=== PATIENT | male | born 1975 | race Caucasian/White ===

== ENCOUNTER 2017-08-23 17:58 | Emergency (ER) | payer BC ==
[~2017-08-23] VITALS: Ht 180.3 cm; Wt 122.5 kg
[2017-08-23 18:05] VITALS: BP 135/85
--- NOTE | 2017-08-23 18:37 | PHYS DOC ---
Past Medical History Additional Past Surgical Histo: carpal tunnel Alcohol Use: Occasionally Adult General Chief Complaint Chief Complaint: LACERATION/AVULSION HPI HPI Patient is a 41 year old male presents to the emergency department with complaints of laceration the right thumb. Patient states he was using a knife to cut product when he sustained a laceration distal tip of the thumb. Hemostasis obtained prior to arrival. Tetanus imitations up-to-date. Review of Systems Review of Systems Constitutional: Denies fever or chills [] Integument: laceration right thumb ll other systems were reviewed and found to be within normal limits, except as documented in this note. Physical Exam Physical Exam Constitutional: Well developed, well nourished, no acute distress, non-toxic appearance. [] Skin: Right thumb, distal tip, 1 cm superficial avulsion. Full Range motion of the thumb without difficulty. EKG EKG [] Radiology/Procedures Radiology/Procedures [] Course & Med Decision Making Course & Med Decision Making Laceration repair: affected area cleansed with betadine, flap of avulsed tissue debrided, surgifoam hemostat applied, tube gauze applied. Pt tolerated procedure well. Pertinent Labs and Imaging studies reviewed. (See chart for details) [] Dragon Disclaimer Dragon Disclaimer This electronic medical record was generated, in whole or in part, using a voice recognition dictation system. Departure Departure Impression: Primary Impression: Avulsion of soft tissue Disposition: 01 HOME, SELF-CARE Condition: STABLE Referrals: JAKY MARTINS MD (PCP) Patient Instructions: Deep Skin Avulsion Additional Instructions: Keep area clean and dry. Do not remove the Surgifoam, allow it to fall off naturally. The finger becomes more painful, red, swollen, return to the emergency department or follow-up with your primary care provider. Return to the emergency department his symptoms or concerns or worsening of current condition. ERICA HANCOCK [employer] THER[employer]IST Aug 23, 2017 18:36
[2017-08-23] MEDS ORDERED: SURGICEL HEMOSTAT 2X3 EACH. TP ONE (19:00)
== END 2017-08-23 18:55 | disposition home or self-care (01) ==
LOC: ER 17:58
DX: S61.011A Laceration without foreign body of right thumb without damage to nail, initial encounter (principal); W26.0XXA Contact with knife, initial encounter; Y93.89 Activity, other specified; Y99.8 Other external cause status; Y92.89 Other specified places as the place of occurrence of the external cause
CPT/HCPCS: 99283